=== PATIENT | female | born 1940 | race Caucasian/White ===

== ENCOUNTER 2018-01-06 11:53 | Emergency (ER) | payer MEDICARE ==
[~2018-01-06] VITALS: Ht 154.9 cm; Wt 57.7 kg
[~2018-01-06 11:53] MED LIST: AMLO10TA2 PO; ERGO500017 PO; HYDR-3307 PO; LISI40TA PO; NAPR-856 PO
[2018-01-06 12:47] LABS: ALBUMIN 4.3 g/dL (3.4-5.0); ANION GAP 8 mmol/L (5-15); CALCIUM 8.7 mg/dL (8.5-10.1); CHLORIDE 102 mmol/L (98-107); CREATININE 0.95 mg/dL (0.55-1.02)
[2018-01-06 12:53] LABS: MD YES; MEAN CORPUSCULAR HEMOGLOBIN 21.8 pg (27.0-34.8); MEAN CORPUSCULAR HGB CONC 32.3 g/dL (32.4-35.8); MEAN CORPUSCULAR VOLUME 67.5 fL (80-100); MEAN PLATELET VOLUME 8.5 fL (7.4-10.4); PLATELET COUNT 286 x10^3/uL (130-400); RED BLOOD COUNT 4.79 x10^6/uL (3.82-5.3); RED CELL DISTRIBUTION WIDTH 16.2 % (9.6-15.2)
[2018-01-06 12:55] LABS: BASOS#(MANUAL) 0.05 x10^3/uL (0-0.1); BASOS% (MANUAL) 1 % (0-1); EOS#(MANUAL) 0.05 x10^3/uL (0.0-0.4); EOS% (MANUAL) 1 % (1-7); LYMPH#(MANUAL) 1.89 x10^3/uL (1-3.4); LYMPHS% (MANUAL) 37 % (22-44); MONOS#(MANUAL) 0.26 x10^3/uL (0.3-2.7); MONOS% (MANUAL) 5 % (2-9); SEG#(MANUAL) 2.86 x10^3/uL (1.8-6.8); SEGS% (MANUAL) 56 % (42-75)
[2018-01-06 12:56] LABS: ANISOCYTOSIS 1+; OVALOCYTES 1+
[2018-01-06 12:57] LABS: <PLATELET ESTIMATE> ADEQUATE; <PLT MORPHOLOGY> NORMAL PLT MORPH; MICROCYTOSIS 2+
[2018-01-06 12:58] LABS: SCHISTOCYTES 1+
[2018-01-06] MEDS ORDERED: prednisOLONE 15 MG/5 ML ORAL SOLN PO ONE (13:30)
[2018-01-06 13:38] VITALS: BP 123/78
== END 2018-01-06 13:46 | disposition home or self-care (01) ==
LOC: ED 13:00
DX: G51.0 Bell's palsy (principal); I10 Essential (primary) hypertension
CPT/HCPCS: 36415; 70450; 80048; 82040; 85025; 99285; J7512

== ENCOUNTER 2019-08-05 14:49 | Emergency (ER) | payer MEDICARE ==
[~2019-08-05] VITALS: Ht 152.4 cm; Wt 65.1 kg
[~2019-08-05 14:49] MED LIST changes: -AMLO10TA2 PO; +AMLO10TA8 PO; -HYDR-3307 PO; +HYDR-36 PO
[2019-08-05] MEDS ORDERED: ACETAMINOPHEN 325 MG TABLET PO ONE (15:30)
--- NOTE | 2019-08-05 15:31 | NUR ---
first contact with pt. pt presents ed d/t pounding headache hx of brain aneurysm surgery at 2006 at the same side(right side) . pt's aox4. resps even and unlabored. denies vision change/n/v/d. bp/spo2 monitors in place. call light within reach. edmd at bedside to evaluate at this time.
--- NOTE | 2019-08-05 15:36 | NUR ---
PT TO CT AT THIS TIME.
[2019-08-05] MEDS ORDERED: ACETAMINOPHEN 325 MG TABLET ONE (15:56)
--- NOTE | 2019-08-05 15:57 | NUR ---
pt back to room from ct at this time.
--- NOTE | 2019-08-05 15:58 | NUR ---
pt medicated per emar. pt tolerated well.
[2019-08-05 16:51] VITALS: BP 123/68
--- NOTE | 2019-08-05 16:51 | NUR ---
edmd at bedside to explain all results at this time.
--- NOTE | 2019-08-05 16:56 | NUR ---
pt amb to br with steady gait.
--- NOTE | 2019-08-05 17:18 | NUR ---
Patient given discharge instructions and they have confirmed that they understand the instructions. Patient ambulatory with steady gait.
== END 2019-08-05 17:20 | disposition home or self-care (01) ==
LOC: ED 17:10
DX: R51 Headache (principal); I10 Essential (primary) hypertension; K21.9 Gastro-esophageal reflux disease without esophagitis; E78.5 Hyperlipidemia, unspecified
CPT/HCPCS: 70450; 99284